=== PATIENT | male | born 1985 | race African-American/Black ===

== ENCOUNTER 2022-11-15 01:38 | Emergency (ER) | payer MEDICAID, OTHER ==
[~2022-11-15] VITALS: Ht 167.6 cm; Wt 68.0 kg
--- NOTE | 2022-11-15 02:45 | NUR ---
[facility] FOR HEARING VOICES. ASKING FOR VOLUNTARY PSYCH ADMISSION. -SI/HI. PT A/OX3. TOLERATING R/A WELL WITH NO RESP DISTRESS. RR EVEN AND NONLABORED. PT CHANGED IN GOWN, BELONGINGS PLACED IN LOCKER AND WANDED BY SECURITY. AMBULATORY WITH STEADY GAIT. [facility]
--- NOTE | 2022-11-15 03:11 | NUR ---
COVID ANTIGEN SWAB COLLECTED AND SENT TO LAB
--- NOTE | 2022-11-15 04:24 | NUR ---
URINE COLLECTED AND SENT TO LAB
--- NOTE | 2022-11-15 04:28 | NUR ---
BLOOD DRAWN AND SENT TO LAB
[2022-11-15 04:39] LABS: BASOPHILS # (AUTO) 0.1 K/uL (0.0-0.2); BASOPHILS % (AUTO) 0.6 % (0.0-2.0); EOSINOPHILS % (AUTO) 2.1 % (0.0-6.0); HEMATOCRIT 39 % (39-51); HEMOGLOBIN 12.4 g/dL (13.5-17.5); LYMPHOCYTES # (AUTO) 3.1 K/uL (0.8-4.8); MEAN CORPUSCULAR HGB CONC 32 g/dl (31.0-36.0); MEAN CORPUSCULAR VOLUME 91 fL (80-96); MONOCYTES # (AUTO) 0.7 K/uL (0.1-1.30); MONOCYTES % (AUTO) 7.6 % (2.0-12.0); NEUTROPHILS % (AUTO) 55.7 % (43.0-81.0); PLATELET COUNT (AUTO) 333 K/uL (150-450); RED BLOOD CELL COUNT(AUTO) 4.24 MIL/uL (4.5-6.0)
[2022-11-15 04:40] LABS: BILIRUBIN,URINE NEGATIVE (NEGATIVE); COLOR,URINE DARK YELLOW (YELLOW); LEUKOCYTE ESTERASE ,URINE NEGATIVE (NEGATIVE); NITRITE, URINE NEGATIVE (NEGATIVE); PH,URINE 6.5 (5.0-8.0); PROTEIN,URINE NEGATIVE (NEGATIVE); UGLUCOSE NEGATIVE (NEGATIVE); UROBILINOGEN,URINE 0.2 EU/dL (0.2)
[2022-11-15 04:59] LABS: ALANINE AMINOTRANSFERASE 29 U/L (12-78); ALBUMIN 2.7 g/dL (3.4-5.0); ALKALINE PHOSPHATASE 84 U/L (46-116); ASPARTATE AMINOTRANSFERASE 26 U/L (15-37); BILIRUBIN,DIRECT 0.2 mg/dL (0.0-0.2); BILIRUBIN,TOTAL 0.5 mg/dL (0.2-1.0); CALCIUM, SERUM 9.1 mg/dL (8.5-10.1); CARBON DIOXIDE 28 mmol/L (21-32); CHLORIDE 104 mmol/L (98-107); CREATININE 0.9 mg/dL (0.6-1.3); GLUCOSE 175 mg/dL (74-106); POTASSIUM 4.7 mmol/L (3.5-5.1); SODIUM SERUM 137 mmol/L (136-145); TOTAL PROTEIN, SERUM 7.1 g/dL (6.4-8.2); UREA NITROGEN, BLOOD 18 mg/dL (7-18)
[2022-11-15 05:00] LABS: ALCOHOL, BLOOD < 3 mg/dL (0-0)
--- NOTE | 2022-11-15 07:26 | NUR ---
CLINICALS FAXED TO [facility]
--- NOTE | 2022-11-15 12:40 | NUR ---
ACCEPTED AT [facility]. DR. WHITEHEAD ETA 1 HOUR [phone] [id number]
[2022-11-15 13:14] VITALS: BP 135/79
--- NOTE | 2022-11-15 13:14 | NUR ---
picked up by transport [facility]
== END 2022-11-15 13:15 ==
LOC: EDBD 01:40 → ER 01:40
DX: Z04.6 Encounter for general psychiatric examination, requested by authority (principal); R45.851 Suicidal ideations; F20.9 Schizophrenia, unspecified; Z20.822 Contact with and (suspected) exposure to COVID-19; Z59.00 Homelessness unspecified
CPT/HCPCS: 99285; 85025; 80048; 80076; 81003; 36415; 87426; 80143; 80320; 80307; C9803; G0480